=== PATIENT | male | born 1990 | race African-American/Black ===

== ENCOUNTER 2022-02-27 23:38 | Emergency (ER) | payer SELFPAY ==
[2022-02-28] MEDS ORDERED: Pantoprazole 40 MG VIAL ONE (00:02)
[2022-02-28] MEDS ORDERED: Acetaminophen 500 MG TAB ONE (00:02)
[2022-02-28 00:06] LABS: Hemoglobin 13.2 g/dL (14.0-18.0); Mean Corpuscular HGB CONC 32.2 g/dL (32.0-36.0); Mean Corpuscular Hemoglobin 36.4 pg (27.0-31.0); Mean Platelet Volume 8.1 fL (7.4-10.4); Platelet Count 130 thou/uL (130-400); RBC Distribution Width 11.9 % (11.5-14.5); Red Blood Cell (RBC) Count 3.63 mill/uL (4.70-6.10); White Blood Cell (WBC) Count 3.7 thou/uL (4.8-10.8)
[2022-02-28 00:14] LABS: Bilirubin Negative (Negative); Blood, Urine Trace (Negative); Clarity Clear (Clear); Glucose, Urine (Dipstick) Negative (Negative); Ketone, Urine Trace mg/dL (Negative); Leukocyte Negative (Negative); Nitrite Negative (Negative); Protein, Urine (Dipstick) 100 mg/dL (Neg-Trace)
[2022-02-28 00:17] LABS: Amphetamine Not Detected (NotDetected); Barbiturates Screen Not Detected (NotDetected); Benzodiazepine Screen Not Detected (NotDetected); Cocaine Metabolite Screen Not Detected (NotDetected); Methadone Not Detected (NotDetected); Methamphetamine Not Detected (NotDetected); Opiate Screen Not Detected (NotDetected); Oxycodone Screen Not Detected (NotDetected); Phencyclidine (PCP) Not Detected (NotDetected); THC/Cannabinoid Screen Detected (NotDetected); Tricyclic Screen Not Detected (NotDetected)
[2022-02-28 00:18] LABS: Medtox Control Line Valid? VALID (VALID)
[2022-02-28 00:20] LABS: ALT (SGPT) 61 U/L (8-55); AST (SGOT) 240 U/L (5-34); Albumin 4.3 g/dL (3.5-5.0); Alkaline Phosphatase 227 U/L (40-110); Anion Gap 24 mmol/L (10-20); BUN (Urea Nitrogen) 10 mg/dL (8.9-20.6); Bilirubin, Total 1.3 mg/dL (0.2-1.2); Calc. Creatinine Clearance 0 mL/min (70-130); Calcium 8.8 mg/dL (7.8-10.44); Carbon Dioxide 16 mmol/L (22-29); Chloride 102 mmol/L (98-107); Globulin 3.8 g/dL (2.4-3.5); Glucose 129 mg/dL (70-105); Potassium 3.3 mmol/L (3.5-5.1); Protein, Total 8.1 g/dL (6.0-8.3); Sodium 139 mmol/L (136-145)
[2022-02-28 00:22] LABS: Specific Gravity, Urine 1.027 (1.002-1.036)
[2022-02-28 00:28] LABS: RBC/HPF 0-3 HPF (0-3); Squamous Epithelial 0-3 HPF (0-3); WBC/HPF 0-3 HPF (0-3)
[2022-02-28] MEDS ORDERED: Sodium Chloride 0.9% 1,000 ML ONE (00:28)
[2022-02-28 00:29] LABS: Bacteria/HPF 1+ HPF (None Seen); Mucous/LPF Few LPF (<2+)
[2022-02-28 00:38] LABS: Acetaminophen Less than 10.0 mcg/mL (10.0-30.0); Alcohol 252 mg/dL (Less than 10); Salicylate Less than 8.0 mg/dL (15.0-30.0)
[2022-02-28 01:14] LABS: MDiff Complete? YES
[2022-02-28 01:15] LABS: Eosinophils 2 % (0-10); Lymphocytes 17 % (21-51); Microcytosis SLIGHT = 6-15 cells (100X) (0-5/hpf); Monocytes 6 % (0-10); Neutrophil 74 % (42-75)
[2022-02-28] MEDS ORDERED: Ibuprofen 200 MG TAB ONE (02:07)
== END 2022-02-28 07:58 | disposition home or self-care (01) ==
LOC: NAV ERS 23:38
DX: K70.10 Alcoholic hepatitis without ascites (principal); F10.129 Alcohol abuse with intoxication, unspecified; F41.1 Generalized anxiety disorder; R79.89 Other specified abnormal findings of blood chemistry; K85.20 Alcohol induced acute pancreatitis without necrosis or infection; F17.200 Nicotine dependence, unspecified, uncomplicated
CPT/HCPCS: 80053; 80306; 80307; 81003; 81015; 83690; 84443; 84484; 85025; 93005; 96361; 96374; C9113; J7050